=== PATIENT | female | born 1960 ===

== ENCOUNTER 2020-05-14 10:59 | Emergency (ER) | payer MEDICARE ==
--- NOTE | 2020-05-14 11:17 | Emergency Department Report ---
Chief Complaint: Urogenital-Female Stated Complaint: VAGINAL/ITCHY Time Seen by Provider: 05/14/20 11:15 - HPI History of Present Illness: 59 y/o female comes in for 2 week history of vaginal itching and vaginal smell. Denies any dysuria no vaginal discharge or vaginal bleeding. No fever or chills. No nausea or vomiting. - Exam Vital Signs: Vital Signs 05/14/20 11:04 Respiratory 17 Rate O2 Sat by Pulse 100 Oximetry Physical Exam: AxO times 3 NAD nontoxic walking and moving without difficulties. MSE screening note: Focused history and physical exam performed. Due to findings the following was ordered: 59 y/o female comes in for 2 week history of vaginal itching and vaginal smell. Denies any dysuria no vaginal discharge or vaginal bleeding. No fever or chills. No nausea or vomiting. ED Disposition for MSE Disposition: MED SCREENING EXAM-LEFT Condition: Stable
== END 2020-05-14 11:55 | disposition left against medical advice (07) ==
LOC: ED 10:59
DX: L29.2 Pruritus vulvae (principal); Z53.21 Procedure and treatment not carried out due to patient leaving prior to being seen by health care provider